=== PATIENT | male | born 1970 | race African-American/Black ===

== ENCOUNTER 2019-09-22 08:01 | Emergency (ER) | payer BC, OTHER ==
[2019-09-22 08:10] VITALS: TEMP 98.2; BMI 50.1
--- NOTE | 2019-09-22 08:36 | PDOC ---
History of Present Illness - General Chief Complaint: Cold Symptoms Stated Complaint: CONGESTED/COUGHING Time Seen by Provider: 09/22/19 08:20 History Source: Patient Exam Limitations: No Limitations Past History - Travel Traveled outside of the country in the last 30 days: No Close contact w/someone who was outside of country & ill: No - Past Medical History Allergies/Adverse Reactions: Allergies Allergy/AdvReac Type Severity Reaction Status Date / Time No Known Allergies Allergy Verified 09/22/19 08:08 - Psycho Social/Smoking Cessation Hx Smoking History: Never smoked Hx Alcohol Use: No Drug/Substance Use Hx: No Review of Systems - Review of Systems Able to Perform ROS?: Yes Comments:: 09/22/19 08:36 CONSTITUTIONAL: Absent: fever, chills, diaphoresis, generalized weakness, malaise, loss of appetite HEENT: Absent: rhinorrhea, nasal congestion, throat pain, throat swelling, difficulty swallowing, mouth swelling, ear pain, eye pain, visual Changes CARDIOVASCULAR: Absent: chest pain, loss of consciousness, palpitations, irregular heart rate, peripheral edema RESPIRATORY: Present: cough, shortness of breath, dyspnea on exertion, orthopnea. Absent: wheezing, stridor, hemoptysis GASTROINTESTINAL: Absent: abdominal pain, abdominal distension, nausea, vomiting, diarrhea, constipation, melena, hematochezia GENITOURINARY: Absent: dysuria, frequency, urgency, hesitancy, hematuria, flank pain, genital pain MUSCULOSKELETAL: Absent: myalgia, arthralgia, joint swelling SKIN: Absent: rash, itching, pallor HEMATOLOGIC/IMMUNOLOGIC: Absent: easy bleeding, easy bruising, lymphadenopathy, frequent infections ENDOCRINE: Absent: unexplained weight gain, unexplained weight loss, heat intolerance, cold intolerance NEUROLOGIC: Absent: headache, focal weakness or paresthesias, dizziness, unsteady gait, seizure, mental status changes, bladder or bowel incontinence PSYCHIATRIC: Absent: anxiety, depression, suicidal or homicidal ideation, hallucinations. Is the patient limited Cam[place]onian proficient: No *Physical Exam - Vital Signs Last Vital Signs Temp Pulse Resp BP Pulse Ox 98.2 F 102 H 18 157/108 H 95 09/22/19 08:08 09/22/19 08:08 09/22/19 08:08 09/22/19 08:08 09/22/19 08:08 - Physical Exam 09/22/19 08:36 GENERAL: Well developed, well nourished. Awake and alert. No acute distress. HEENT: Normocephalic, atraumatic. PERRLA, EOMI. No conjunctival pallor. Sclera are non- icteric. Moist mucous membranes. Oropharynx is clear. NECK: Supple. Full ROM. No JVD. Carotid pulses 2+ and symmetric, without bruits. No thyromegaly. No lymphadenopathy. CARDIOVASCULAR: Regular rate and rhythm. No murmurs, rubs, or gallops. Distal pulses are 2+ and symmetric. PULMONARY: No evidence of respiratory distress. Lungs are clear to auscultation bilaterally with fair aeration to the bases. Fair inspiration. No wheezing, rales or rhonchi. ABDOMINAL: Soft. Non-tender. Non-distended. No rebound or guarding. No organomegaly. Normoactive bowel sounds. MUSCULOSKELETAL Normal range of motion at all joints. No bony deformities or tenderness. No CVA tenderness. EXTREMITIES: 2+ pitting edema to the legs bilaterally. No cyanosis. No clubbing. No edema. No calf tenderness. SKIN: Warm and dry. Normal capillary refill. No rashes. No jaundice. NEUROLOGICAL: Alert, awake, appropriate. Cranial nerves 2-12 intact. No deficits to light touch and temperature in face, upper extremities and lower extremities. No motor deficits in the in face, upper extremities and lower extremities. Normoreflexic in the upper and lower extremities. Normal speech. Toes are down- going bilaterally. Gait is normal without ataxia. PSYCHIATRIC: Cooperative. Good eye contact. Appropriate mood and affect. Medical Decision Making - Medical Decision Making 09/22/19 09:47 The patient is a 49-year-old male past medical history of hypertension, who presents to the ER with 2 weeks of increasing shortness of breath, dyspnea on exertion, lower leg swelling and cough. He states that the cough is worse at night when he lies flat. He states that he had a sore throat and chills when this began which has since resolved. He states that he gets short of breath just walking short distances in his house. Denies earache, chest pain, chest tightness, nausea, vomiting, diarrhea and urinary symptoms. A/P: Shortness of breath On exam lungs are clear to auscultation bilaterally with fair aeration to the bases. ENT exam shows nasal congestion otherwise unremarkable. 2+ pitting edema noted at the bilateral ankles. No history of trauma. Patient gets visibly short of breath walking from room 4 to the nurses desk in [facility]. Differential diagnosis includes but is not limited to bronchitis, asthma, new onset CHF. We will transfer to the main ER for further work-up and evaluation MARZENA Rees given signout. Discharge - Discharge Information Problems reviewed: Yes Clinical Impression/Diagnosis: Shortness of breath Condition: Stable - Follow up/Referral - Patient Discharge Instructions - Post Discharge Activity
[2019-09-22] MEDS ORDERED: DEXAMETHASONE LIQUID 0.5 MG/5 ML PO ONE (08:45)
[2019-09-22] MEDS ORDERED: ALBUTEROL SO4 2.5/IPRATROPIUM 0.5 INH SOL 3 ML VIAL.NEB. NEB ONE ×2 (08:45→08:53)
[2019-09-22] MEDS ORDERED: DEXAMETHASONE SOD PHOSPHATE 10 MG/1 ML VIAL ONE (08:52)
--- NOTE | 2019-09-22 09:25 | PDOC ---
*Physical Exam - Vital Signs Last Vital Signs Temp Pulse Resp BP Pulse Ox 98.2 F 102 H 18 157/108 H 95 09/22/19 08:08 09/22/19 08:08 09/22/19 08:08 09/22/19 08:08 09/22/19 08:08 - Physical Exam General Appearance: Yes: Obese. No: Apparent Distress HEENT: negative: Pale Conjunctivae Respiratory/Chest: positive: Lungs Clear, Normal Breath Sounds. negative: Respiratory Distress, Accessory Muscle Use Cardiovascular: positive: Regular Rhythm, Tachycardia. negative: Murmur Extremity: positive: Pedal Edema (2+ bilaterally) Integumentary: positive: Normal Color, Warm, Moist Heart Score/ECG Review - ECG Intrepretation Rhythm: Regular Rhythm (Sinus tachycardia at 103. LVH noted. Prolonged QT of 531 ms) ED Treatment Course - LABORATORY CBC & Chemistry Diagram: 09/22/19 09:42 09/22/19 09:42 - Medications Given in the ED: ED Medications Discontinued Medications Generic Name Dose Route Start Last Admin Trade Name Taurusq PRN Reason Stop Dose Admin Dexamethasone 10 mg 09/22/19 08:45 09/22/19 09:08 Decadron Liquid - PO 09/22/19 08:46 Not Given ONCE ONE Medical Decision Making - Medical Decision Making 09/22/19 09:22 Patient received from [facility] from [facility]UY[facility] Pascal. Patient with history of hypertension, prediabetes, and obesity. Patient states for the past 2 weeks has been shortness of breath even while at rest. Patient also states approximately 20 pound weight gain over the past few months but denies orthopnea , sleep apnea, fever, chills and states also has been having more productive cough describing the sputum as a brownish hue. Patient denies fever, chills, chest pain, nausea or weakness. Patient states over the holidays has been not watching his diet and has been drinking a little bit more alcohol but otherwise has been consistent. Patient states also may have forgotten to take his blood pressure medications a few times but states did take it this morning. Patient has not been seen by his PCP in approximately 6 months secondary to 90-day supply refills requiring no office visit. 09/22/19 09:24 Patient has been added for labs including a BNP, magnesium secondary to prolonged QTC EKG 09/22/19 11:21 Laboratory Tests 09/22/19 09/22/19 09/22/19 09:42 09:42 09:42 WBC 9.6 Hgb 14.5 Hct 44.3 Absolute Neuts (auto) 5.4 Neutrophils % 56.5 Sodium 139 Potassium 4.1 Chloride 105 Carbon Dioxide 28 Anion Gap 6 L BUN 9.5 Creatinine 1.1 Random Glucose 139 H Calcium 9.0 Magnesium Total Bilirubin 0.4 AST 16 ALT 55 Alkaline Phosphatase 65 B-Natriuretic Peptide 213.6 H Total Protein 7.6 Albumin 3.6 09/22/19 09:42 WBC Hgb Hct Absolute Neuts (auto) Neutrophils % Sodium Potassium Chloride Carbon Dioxide Anion Gap BUN Creatinine Random Glucose Calcium Magnesium 2.2 Total Bilirubin AST ALT Alkaline Phosphatase B-Natriuretic Peptide Total Protein Albumin Chest x-ray reveals no acute processes except for a noted prominent heart. Patient's repeat blood pressure is currently 145/91 with an O2 sat of 96%. Heart rate 98. Patient will be prescribed azithromycin for treatment of bronchitis Discharge - Discharge Information Problems reviewed: Yes Clinical Impression/Diagnosis: Shortness of breath, Bronchitis Condition: Improved Disposition: HOME - Follow up/Referral - Patient Discharge Instructions Patient Printed Discharge Instructions: DI for Acute Bronchitis Additional Instructions: Please take antibiotics as prescribed. Drink plenty of water. Please continue take your medications as prescribed by your primary care physician and follow-up as scheduled this month. As we discussed well-balanced meal healthy diet and exercise are part of your regimen. - Post Discharge Activity
[2019-09-22] MEDS ORDERED: ENALAPRIL MALEATE 10 MG TABLET (FP) PO ONE (09:38)
[2019-09-22] MEDS ORDERED: amLODIPine BESYLATE 5 MG TABLET (FP) PO ONE (09:40)
[2019-09-22] MEDS ORDERED: ENALAPRIL MALEATE 5 MG TABLET (FP) ONE (10:08)
[2019-09-22] MEDS ORDERED: amLODIPine BESYLATE 5 MG TABLET (FP) ONE (10:08)
[2019-09-22 10:11] LABS: BASO % 0.7 % (0-2.0); EOS % 2.7 % (0-4.5); HEMATOCRIT 44.3 % (35.4-49); HEMOGLOBIN 14.5 GM/dL (11.7-16.9); LYMPH % 34.2 % (8-40); MCH 29.5 pg (25.7-33.7); MCHC 32.8 g/dl (32.0-35.9); MEAN CELL VOLUME 89.9 fl (80-96); MEAN PLT VOLUME 10.6 fl (7.5-11.1); MONO % 5.9 % (3.8-10.2); NEUT % 56.5 % (42.8-82.8); PLATELET COUNT 161 K/MM3 (134-434); RBC 4.93 M/mm3 (4.00-5.60); RDW 15.1 % (11.9-15.9); WHITE BLOOD COUNT 9.6 K/mm3 (4.0-10.0)
--- NOTE | 2019-09-22 10:30 | EKG ---
Test Reason : Blood Pressure : / mmHG Vent. Rate : 103 BPM Atrial Rate : 103 BPM P-R Int : 156 ms QRS Dur : 104 ms QT Int : 406 ms P-R-T Axes : 058 -09 046 degrees QTc Int : 531 ms POOR DATA QUALITY, INTERPRETATION MAY BE ADVERSELY AFFECTED SINUS TACHYCARDIA POSSIBLE LEFT ATRIAL ENLARGEMENT LEFT VENTRICULAR HYPERTROPHY CANNOT RULE OUT SEPTAL INFARCT , AGE UNDETERMINED PROLONGED QT ABNORMAL ECG NO PREVIOUS ECGS AVAILABLE Confirmed by MD Jane, Gerard ([id number]) on 09/22/2019 10:30:01 AM Referred By: Confirmed By:Gerard Lara MD
[2019-09-22 10:37] LABS: ALBUMIN 3.6 g/dl (3.4-5.0); BILIRUBIN,TOTAL 0.4 mg/dL (0.2-1); BLOOD UREA NITROGEN 9.5 mg/dL (7-18); CREATININE 1.1 mg/dL (0.55-1.3); POTASSIUM 4.1 mmol/L (3.5-5.1); TOT PROT 7.6 g/dl (6.4-8.2)
[2019-09-22 10:47] VITALS: BP 146/96; PULSE 96
== END 2019-09-22 11:34 | disposition home or self-care (01) ==
LOC: JER 08:01
PROC: 3E0F7GC Introduction of Other Therapeutic Substance into Respiratory Tract, Via Natural or Artificial Opening (ICD-10-PCS; principal; 2019-09-22)
DX: E66.9 Obesity, unspecified (principal)
CPT/HCPCS: 36415; 71046-TC-FY; 80053; 83735; 83880; 85025; 93005; 93010; 99284-25

== ENCOUNTER 2020-10-06 12:36 | Inpatient (IN) | payer BC, OTHER ==
[2020-10-06] MEDS ORDERED: ACETAMINOPHEN 500 MG TABLET (FP) PO ONE ×2 (13:36→21:20)
[2020-10-06] MEDS ORDERED: ACETAMINOPHEN 500 MG TABLET (FP) ONE (13:49)
[2020-10-06 14:55] LABS: BASO % 0.3 % (0-2.0); EOS % 0.2 % (0-4.5); HEMATOCRIT 36.9 % (35.4-49); HEMOGLOBIN 12.1 GM/dL (11.7-16.9); LYMPH % 22.2 % (8-40); MCH 29.6 pg (25.7-33.7); MCHC 32.7 g/dl (32.0-35.9); MEAN CELL VOLUME 90.6 fl (80-96); MEAN PLT VOLUME 10.1 fl (7.5-11.1); MONO % 3.8 % (3.8-10.2); NEUT % 73.5 % (42.8-82.8); PLATELET COUNT 171 K/MM3 (134-434); RBC 4.07 M/mm3 (4.00-5.60); RDW 13.9 % (11.9-15.9); WHITE BLOOD COUNT 5.7 K/mm3 (4.0-10.0)
[2020-10-06 14:56] LABS: VENOUS BASE EXCESS -2.6 mmol/L (-2-2); VENOUS O2 SATURATION 52.8 % (70-80); VENOUS PCO2 41.5 mmHg (38-52); VENOUS PH 7.357 (7.310-7.410)
[2020-10-06 15:07] LABS: INR 1.11 (0.83-1.09); PROTHROMBIN TIME (PATIENT) 13.6 SEC (9.7-13.0)
[2020-10-06 15:10] LABS: ACTIVATED PTT 29.8 SECONDS (25.2-36.5)
[2020-10-06 15:19] LABS: CHLORIDE 106 mmol/L (98-107); POTASSIUM 4.3 mmol/L (3.5-5.1); SODIUM 135 mmol/L (136-145)
[2020-10-06 15:22] LABS: ALBUMIN 3.4 g/dl (3.4-5.0); ANION GAP 4 MMOL/L (8-16); BLOOD UREA NITROGEN 9.7 mg/dL (7-18); CALCIUM 8.1 mg/dL (8.5-10.1); CO2 26 mmol/L (21-32); GLUCOSE,RANDOM 113 mg/dL (74-106); MAGNESIUM 2.5 mg/dL (1.8-2.4)
[2020-10-06 15:24] LABS: SGPT/ALT 50 U/L (13-61)
[2020-10-06 15:25] LABS: CREATININE 1.3 mg/dL (0.55-1.3); SGOT/AST 30 U/L (15-37)
[2020-10-06 15:27] LABS: BILIRUBIN,TOTAL 0.3 mg/dL (0.2-1); TOT PROT 7.4 g/dl (6.4-8.2)
[2020-10-06 15:28] LABS: ALK PHOS 54 U/L (45-117); LDH 332 U/L (87-246); N-TERMINAL BNP 467.3 pg/ml (5-125)
[2020-10-06 15:31] LABS: URINE APPEARANCE CLEAR; URINE BILIRUBIN NEGATIVE (NEGATIVE); URINE COLOR YELLOW; URINE GLUCOSE (UA) NEGATIVE (NEGATIVE); URINE KETONE NEGATIVE (NEGATIVE); URINE LEUK ESTERASE NEGATIVE (NEGATIVE); URINE NITRITE NEGATIVE (NEGATIVE); URINE PROTEIN TRACE (NEGATIVE)
[2020-10-06] MEDS ORDERED: AZITHROMYCIN IVPB 500 MG in DEXTROSE 5%-WATER - 250 ML IVPB ONE (16:48)
[2020-10-06] MEDS ORDERED: CEFTRIAXONE 1,000 MG in DEXTROSE 5%-WATER - 50 ML IVPB ONE (16:48)
[2020-10-06] MEDS ORDERED: AZITHROMYCIN IVPB 500 MG/250 ML BAG IVPB ONE (20:36)
[2020-10-06] MEDS ORDERED: CEFTRIAXONE 1 GM/50 ML BAG ONE (20:36)
[2020-10-06] MEDS: HEPARIN NA (PORCINE) 5,000 UNITS/ML 1ML VIAL SQ SCH (22:05)
[2020-10-06] MEDS: INSULIN SLIDING SCALE (NOVOLOG) 1 VIAL SQ SCH (22:08)
[2020-10-07] MEDS: HEPARIN NA (PORCINE) 5,000 UNITS/ML 1ML VIAL SQ SCH ×2 (05:44→15:34)
[2020-10-07] MEDS ORDERED: ACETAMINOPHEN 325 MG TABLET (FP) PO ONE (06:05)
[2020-10-07] MEDS: INSULIN SLIDING SCALE (NOVOLOG) 1 VIAL SQ SCH ×4 (06:42→21:54)
[2020-10-07 08:46] LABS: HEMATOCRIT 35.3 % (35.4-49); HEMOGLOBIN 11.7 GM/dL (11.7-16.9); MCHC 33.2 g/dl (32.0-35.9); MEAN CELL VOLUME 90.4 fl (80-96); MEAN PLT VOLUME 10.2 fl (7.5-11.1); PLATELET COUNT 155 K/MM3 (134-434); RDW 13.7 % (11.9-15.9); WHITE BLOOD COUNT 5.6 K/mm3 (4.0-10.0)
[2020-10-07 09:04] LABS: POTASSIUM 4.4 mmol/L (3.5-5.1)
[2020-10-07 09:05] LABS: BLOOD UREA NITROGEN 10.4 mg/dL (7-18); CALCIUM 7.6 mg/dL (8.5-10.1)
[2020-10-07 09:07] LABS: MAGNESIUM 2.4 mg/dL (1.8-2.4)
[2020-10-07 09:09] LABS: CREATININE 1.2 mg/dL (0.55-1.3)
[2020-10-07] MEDS ORDERED: AZITHROMYCIN IVPB 250 MG in DEXTROSE 5%-WATER - 250 ML IVPB SCH (10:00)
[2020-10-07] MEDS ORDERED: cefTRIAXone SODIUM 1 GM VIAL ONE (10:26)
[2020-10-07] MEDS ORDERED: DEXTROSE 5%-WATER - 50 ML IVPB ONE (10:26)
[2020-10-07] MEDS: CEFTRIAXONE 1 GM in DEXTROSE 5%-WATER - 50 ML IVPB SCH (10:27)
[2020-10-07] MEDS ORDERED: ACETAMINOPHEN 325 MG TABLET (FP) PO PRN (10:36)
[2020-10-07] MEDS: AZITHROMYCIN IVPB 250 MG in DEXTROSE 5%-WATER - 250 ML IVPB SCH (11:16)
[2020-10-07] MEDS: DEXAMETHASONE SOD PHOSPHATE 10 MG/1 ML VIAL IVPUSH SCH (11:18)
[2020-10-07] MEDS ORDERED: REMDESIVIR 200 MG in SODIUM CHLORIDE 210 ML IVPB ONE (13:30)
[2020-10-07] MEDS: EPLERENONE 25 MG TABLET PO SCH (15:33)
[2020-10-07] MEDS ORDERED: FUROSEMIDE 40 MG TABLET (FP) PO SCH ×2 (18:00)
[2020-10-07] MEDS: FUROSEMIDE 40 MG TABLET (FP) PO SCH (18:18)
[2020-10-07] MEDS ORDERED: PT OWN MED DRAWER 7, Y5N ONE (21:47)
[2020-10-07] MEDS ORDERED: INSULIN (NOVOLOG) ASPART 100 UNITS/ML 10ML VIAL ONE (21:50)
[2020-10-07] MEDS: APIXABAN 5 MG TABLET PO SCH (21:51)
[2020-10-07] MEDS: ASCORBIC ACID 500 MG TABLET (FP) PO SCH (21:51)
[2020-10-07] MEDS: FAMOTIDINE 20 MG/50 ML IVPB 20 MG/50 ML MG IVPB SCH (21:55)
[2020-10-07] MEDS: ZINC SULFATE 220 MG CAPSULE (FP) PO SCH (21:55)
[2020-10-07] MEDS ORDERED: SACUBITRIL/VALSARTAN 49 MG-51 MG TABLET PO SCH (22:00)
[2020-10-07] MEDS: SACUBITRIL/VALSARTAN 49 MG-51 MG TABLET PO SCH (22:41)
[2020-10-08] MEDS: FUROSEMIDE 40 MG TABLET (FP) PO SCH ×2 (06:35→17:46)
[2020-10-08] MEDS: INSULIN SLIDING SCALE (NOVOLOG) 1 VIAL SQ SCH ×4 (06:35→21:14)
[2020-10-08] MEDS ORDERED: PT OWN MED DRAWER 7, Y5N ONE (09:57)
[2020-10-08] MEDS ORDERED: DEXTROSE 5%-WATER - 50 ML IVPB ONE (09:58)
[2020-10-08] MEDS ORDERED: cefTRIAXone SODIUM 1 GM VIAL ONE (09:58)
[2020-10-08] MEDS: ASCORBIC ACID 500 MG TABLET (FP) PO SCH ×2 (10:06→21:08)
[2020-10-08] MEDS: amLODIPine BESYLATE 10 MG TABLET (FP) PO SCH (10:06)
[2020-10-08] MEDS: DEXAMETHASONE SOD PHOSPHATE 10 MG/1 ML VIAL IVPUSH SCH (10:06)
[2020-10-08] MEDS: APIXABAN 5 MG TABLET PO SCH (10:07)
[2020-10-08] MEDS: EPLERENONE 25 MG TABLET PO SCH (10:07)
[2020-10-08] MEDS: ZINC SULFATE 220 MG CAPSULE (FP) PO SCH ×2 (10:07→21:07)
[2020-10-08] MEDS: FAMOTIDINE 20 MG/50 ML IVPB 20 MG/50 ML MG IVPB SCH ×2 (10:07→21:08)
[2020-10-08] MEDS: SACUBITRIL/VALSARTAN 49 MG-51 MG TABLET PO SCH ×2 (10:08→21:08)
[2020-10-08] MEDS: CEFTRIAXONE 1 GM in DEXTROSE 5%-WATER - 50 ML IVPB SCH (10:08)
[2020-10-08] MEDS: AZITHROMYCIN IVPB 250 MG in DEXTROSE 5%-WATER - 250 ML IVPB SCH (10:09)
[2020-10-08 10:27] LABS: BASO % 0.1 % (0-2.0); HEMATOCRIT 37.8 % (35.4-49); HEMOGLOBIN 12.7 GM/dL (11.7-16.9); LYMPH % 12.9 % (8-40); MCH 30.2 pg (25.7-33.7); MCHC 33.7 g/dl (32.0-35.9); MEAN CELL VOLUME 89.6 fl (80-96); PLATELET COUNT 185 K/MM3 (134-434); RBC 4.22 M/mm3 (4.00-5.60); RDW 13.9 % (11.9-15.9); WHITE BLOOD COUNT 7.8 K/mm3 (4.0-10.0)
[2020-10-08 10:49] LABS: POTASSIUM 4.3 mmol/L (3.5-5.1)
[2020-10-08 10:56] LABS: CREATININE 1.2 mg/dL (0.55-1.3)
[2020-10-08 10:58] LABS: ALBUMIN 3.4 g/dl (3.4-5.0); BILIRUBIN,TOTAL 0.4 mg/dL (0.2-1); CALCIUM 8.5 mg/dL (8.5-10.1)
[2020-10-08 10:59] LABS: MAGNESIUM 2.5 mg/dL (1.8-2.4)
[2020-10-08 11:00] LABS: PHOSPHOROUS 2.4 mg/dL (2.5-4.9)
[2020-10-08] MEDS: REMDESIVIR 100 MG in SODIUM CHLORIDE 230 ML IVPB SCH (13:27)
[2020-10-08] MEDS: CHOLECALCIFEROL (VIT D3) 1,000 UNIT (25 MCG) TABLET PO SCH (13:29)
[2020-10-08] MEDS ORDERED: SODIUM PHOSPHATE - 15 MM in SODIUM CHLORIDE 250 ML IVPB ONE (15:30)
[2020-10-08] MEDS ORDERED: INSULIN (NOVOLOG) ASPART 100 UNITS/ML 10ML VIAL ONE (16:46)
[2020-10-09] MEDS: FUROSEMIDE 40 MG TABLET (FP) PO SCH ×2 (05:52→17:21)
[2020-10-09] MEDS: INSULIN SLIDING SCALE (NOVOLOG) 1 VIAL SQ SCH ×4 (06:00→21:17)
[2020-10-09 09:45] LABS: BASO % 0.1 % (0-2.0); HEMATOCRIT 39.4 % (35.4-49); HEMOGLOBIN 12.8 GM/dL (11.7-16.9); MCH 29.5 pg (25.7-33.7); MCHC 32.5 g/dl (32.0-35.9); MEAN CELL VOLUME 90.6 fl (80-96); MEAN PLT VOLUME 10.3 fl (7.5-11.1); MONO % 6.5 % (3.8-10.2); NEUT % 81.4 % (42.8-82.8); PLATELET COUNT 236 K/MM3 (134-434); RBC 4.34 M/mm3 (4.00-5.60); RDW 14.1 % (11.9-15.9); WHITE BLOOD COUNT 12.4 K/mm3 (4.0-10.0)
[2020-10-09 09:53] LABS: POTASSIUM 4.3 mmol/L (3.5-5.1)
[2020-10-09] MEDS ORDERED: DEXTROSE 5%-WATER - 50 ML IVPB ONE (09:58)
[2020-10-09] MEDS ORDERED: cefTRIAXone SODIUM 1 GM VIAL ONE (09:58)
[2020-10-09 10:03] LABS: ALBUMIN 3.4 g/dl (3.4-5.0); BLOOD UREA NITROGEN 19.9 mg/dL (7-18); CALCIUM 8.1 mg/dL (8.5-10.1); MAGNESIUM 2.6 mg/dL (1.8-2.4)
[2020-10-09] MEDS: FAMOTIDINE 20 MG/50 ML IVPB 20 MG/50 ML MG IVPB SCH ×2 (10:03→21:17)
[2020-10-09] MEDS: DEXAMETHASONE SOD PHOSPHATE 10 MG/1 ML VIAL IVPUSH SCH (10:03)
[2020-10-09] MEDS: amLODIPine BESYLATE 10 MG TABLET (FP) PO SCH (10:04)
[2020-10-09] MEDS: CHOLECALCIFEROL (VIT D3) 1,000 UNIT (25 MCG) TABLET PO SCH (10:04)
[2020-10-09] MEDS: ASCORBIC ACID 500 MG TABLET (FP) PO SCH ×2 (10:04→21:17)
[2020-10-09] MEDS: ZINC SULFATE 220 MG CAPSULE (FP) PO SCH ×2 (10:04→21:17)
[2020-10-09 10:05] LABS: BILIRUBIN,TOTAL 0.4 mg/dL (0.2-1); TOT PROT 7.8 g/dl (6.4-8.2)
[2020-10-09] MEDS: ENOXAPARIN NA (PORCINE) 40 MG/0.4 ML DISP.SYRIN SQ SCH (10:05)
[2020-10-09 10:06] LABS: CREATININE 1.2 mg/dL (0.55-1.3); PHOSPHOROUS 4.1 mg/dL (2.5-4.9)
[2020-10-09] MEDS ORDERED: PT OWN MED DRAWER 7, Y5N ONE (10:06)
[2020-10-09] MEDS: SACUBITRIL/VALSARTAN 49 MG-51 MG TABLET PO SCH ×2 (10:09→21:17)
[2020-10-09] MEDS: EPLERENONE 25 MG TABLET PO SCH (10:09)
[2020-10-09] MEDS: CEFTRIAXONE 1 GM in DEXTROSE 5%-WATER - 50 ML IVPB SCH (10:43)
[2020-10-09] MEDS: AZITHROMYCIN IVPB 250 MG in DEXTROSE 5%-WATER - 250 ML IVPB SCH (11:58)
[2020-10-09 14:43] VITALS: BMI 46.4
[2020-10-09] MEDS: REMDESIVIR 100 MG in SODIUM CHLORIDE 230 ML IVPB SCH (18:23)
[2020-10-10] MEDS: FUROSEMIDE 40 MG TABLET (FP) PO SCH ×2 (06:08→17:31)
[2020-10-10] MEDS: INSULIN SLIDING SCALE (NOVOLOG) 1 VIAL SQ SCH ×4 (06:23→21:55)
[2020-10-10 08:49] LABS: BASO % 0.5 % (0-2.0); HEMATOCRIT 37.9 % (35.4-49); HEMOGLOBIN 12.7 GM/dL (11.7-16.9); LYMPH % 15.7 % (8-40); MCHC 33.5 g/dl (32.0-35.9); MEAN CELL VOLUME 89.4 fl (80-96); MEAN PLT VOLUME 9.4 fl (7.5-11.1); MONO % 7.4 % (3.8-10.2); NEUT % 76.4 % (42.8-82.8); PLATELET COUNT 265 K/MM3 (134-434); RBC 4.24 M/mm3 (4.00-5.60); RDW 14.1 % (11.9-15.9); WHITE BLOOD COUNT 11.6 K/mm3 (4.0-10.0)
[2020-10-10 09:15] LABS: POTASSIUM 4.2 mmol/L (3.5-5.1)
[2020-10-10 09:18] LABS: ALBUMIN 3.2 g/dl (3.4-5.0); MAGNESIUM 2.5 mg/dL (1.8-2.4)
[2020-10-10 09:21] LABS: CREATININE 1.2 mg/dL (0.55-1.3); PHOSPHOROUS 4.1 mg/dL (2.5-4.9)
[2020-10-10 09:22] LABS: BILIRUBIN,TOTAL 0.3 mg/dL (0.2-1); TOT PROT 7.2 g/dl (6.4-8.2)
[2020-10-10] MEDS ORDERED: PT OWN MED DRAWER 7, Y5N ONE (10:19)
[2020-10-10] MEDS ORDERED: cefTRIAXone SODIUM 1 GM VIAL ONE (10:19)
[2020-10-10] MEDS ORDERED: DEXTROSE 5%-WATER - 50 ML IVPB ONE (10:20)
[2020-10-10] MEDS: ENOXAPARIN NA (PORCINE) 40 MG/0.4 ML DISP.SYRIN SQ SCH (10:37)
[2020-10-10] MEDS: CHOLECALCIFEROL (VIT D3) 1,000 UNIT (25 MCG) TABLET PO SCH (10:38)
[2020-10-10] MEDS: DEXAMETHASONE SOD PHOSPHATE 10 MG/1 ML VIAL IVPUSH SCH (10:38)
[2020-10-10] MEDS: CEFTRIAXONE 1 GM in DEXTROSE 5%-WATER - 50 ML IVPB SCH (10:39)
[2020-10-10] MEDS: amLODIPine BESYLATE 10 MG TABLET (FP) PO SCH (10:39)
[2020-10-10] MEDS: ASCORBIC ACID 500 MG TABLET (FP) PO SCH ×2 (10:39→21:47)
[2020-10-10] MEDS: ZINC SULFATE 220 MG CAPSULE (FP) PO SCH ×2 (10:39→21:47)
[2020-10-10] MEDS: REMDESIVIR 100 MG in SODIUM CHLORIDE 230 ML IVPB SCH (10:39)
[2020-10-10] MEDS: FAMOTIDINE 20 MG/50 ML IVPB 20 MG/50 ML MG IVPB SCH ×2 (10:39→21:47)
[2020-10-10] MEDS: EPLERENONE 25 MG TABLET PO SCH (10:40)
[2020-10-10] MEDS: SACUBITRIL/VALSARTAN 49 MG-51 MG TABLET PO SCH ×2 (10:40→21:47)
[2020-10-10] MEDS: AZITHROMYCIN IVPB 250 MG in DEXTROSE 5%-WATER - 250 ML IVPB SCH (11:38)
[2020-10-10 12:04] LABS: ANISOCYTOSIS 0; MACROCYTOSIS 0; PLATELET ESTIMATE NORMAL
[2020-10-10 15:27] LABS: ERYTHROCYTE SEDIMENTATION RATE 34 mm/hr (0-10)
[2020-10-11] MEDS: INSULIN SLIDING SCALE (NOVOLOG) 1 VIAL SQ SCH ×3 (06:01→16:13)
[2020-10-11] MEDS: FUROSEMIDE 40 MG TABLET (FP) PO SCH (06:01)
[2020-10-11] MEDS: DEXAMETHASONE SOD PHOSPHATE 10 MG/1 ML VIAL IVPUSH SCH (09:09)
[2020-10-11] MEDS: ENOXAPARIN NA (PORCINE) 40 MG/0.4 ML DISP.SYRIN SQ SCH (09:09)
[2020-10-11] MEDS: EPLERENONE 25 MG TABLET PO SCH (09:10)
[2020-10-11] MEDS: amLODIPine BESYLATE 10 MG TABLET (FP) PO SCH (09:10)
[2020-10-11] MEDS: SACUBITRIL/VALSARTAN 49 MG-51 MG TABLET PO SCH (09:10)
[2020-10-11] MEDS: ZINC SULFATE 220 MG CAPSULE (FP) PO SCH (09:10)
[2020-10-11] MEDS: ASCORBIC ACID 500 MG TABLET (FP) PO SCH (09:10)
[2020-10-11] MEDS: CHOLECALCIFEROL (VIT D3) 1,000 UNIT (25 MCG) TABLET PO SCH (09:10)
[2020-10-11] MEDS ORDERED: DEXTROSE 5%-WATER - 50 ML IVPB ONE (09:28)
[2020-10-11] MEDS ORDERED: cefTRIAXone SODIUM 1 GM VIAL ONE (09:28)
[2020-10-11 09:51] LABS: BASO % 0.2 % (0-2.0); HEMATOCRIT 37.5 % (35.4-49); HEMOGLOBIN 12.2 GM/dL (11.7-16.9); LYMPH % 13.7 % (8-40); MCH 29.5 pg (25.7-33.7); MCHC 32.6 g/dl (32.0-35.9); MEAN CELL VOLUME 90.6 fl (80-96); MONO % 5.2 % (3.8-10.2); NEUT % 80.9 % (42.8-82.8); PLATELET COUNT 276 K/MM3 (134-434); RBC 4.14 M/mm3 (4.00-5.60); RDW 14.1 % (11.9-15.9); WHITE BLOOD COUNT 12.8 K/mm3 (4.0-10.0)
[2020-10-11] MEDS: REMDESIVIR 100 MG in SODIUM CHLORIDE 230 ML IVPB SCH (10:20)
[2020-10-11 10:24] LABS: POTASSIUM 4.4 mmol/L (3.5-5.1)
[2020-10-11 10:31] LABS: ALBUMIN 3.1 g/dl (3.4-5.0); BLOOD UREA NITROGEN 19.7 mg/dL (7-18); MAGNESIUM 2.5 mg/dL (1.8-2.4)
[2020-10-11 10:34] LABS: CREATININE 1.2 mg/dL (0.55-1.3)
[2020-10-11 10:35] LABS: PHOSPHOROUS 3.7 mg/dL (2.5-4.9)
[2020-10-11 10:37] LABS: BILIRUBIN,TOTAL 0.8 mg/dL (0.2-1); TOT PROT 6.9 g/dl (6.4-8.2)
[2020-10-11] MEDS: CEFTRIAXONE 1 GM in DEXTROSE 5%-WATER - 50 ML IVPB SCH (11:18)
[2020-10-11] MEDS: AZITHROMYCIN IVPB 250 MG in DEXTROSE 5%-WATER - 250 ML IVPB SCH (11:49)
[2020-10-11] MEDS: FAMOTIDINE 20 MG/50 ML IVPB 20 MG/50 ML MG IVPB SCH (12:08)
[2020-10-11 13:43] VITALS: BP 106/64; PULSE 79; TEMP 98.3
[2020-10-11 14:02] LABS: ANISOCYTOSIS 0; MACROCYTOSIS 0; PLATELET ESTIMATE NORMAL
== END 2020-10-11 17:08 | disposition home or self-care (01) | DRG 177 ==
LOC: JER 12:36 → JERBED 17:23 → J6S 21:09
PROVIDERS: ADMIT Internal Medicine; ATTEND Student in an Organized Health Care Education/Training Program
PROC: XW033E5 Introduction of Remdesivir Anti-infective into Peripheral Vein, Percutaneous Approach, New Technology Group 5 (ICD-10-PCS; principal; 2020-10-07)
PROC: XW13325 Transfusion of Convalescent Plasma (Nonautologous) into Peripheral Vein, Percutaneous Approach, New Technology Group 5 (ICD-10-PCS; 2020-10-07)
DX: U07.1 COVID-19 (principal); J12.82 Pneumonia due to coronavirus disease 2019; Z68.42 Body mass index [BMI] 45.0-49.9, adult; E11.9 Type 2 diabetes mellitus without complications; I10 Essential (primary) hypertension; E78.5 Hyperlipidemia, unspecified; G47.33 Obstructive sleep apnea (adult) (pediatric); E66.01 Morbid (severe) obesity due to excess calories
CPT/HCPCS: 36415; 36430; 71045-TC-FY; 80048; 80053; 81003; 82550; 82728; 82803; 82962; 83036; 83605; 83615; 83735; 83880; 84100; 84484; 85025; 85027; 85379; 85610; 85651; 85730; 86140; 86850; 86900; 86901; 87040; 87086; 87804; 93005; 93010; 94761; 99285-25; C9399; C9803; J1100; J1644; P9017; U0003